=== PATIENT | male | born 1985 | race Asian ===

== ENCOUNTER 2017-07-25 10:31 | Emergency (ER) | payer OTHER ==
[2017-07-25 10:57] VITALS: BP 128/77; PULSE 75; TEMP 98.6; BMI 23.6
--- NOTE | 2017-07-25 11:40 | PDOC ---
History of Present Illness - General Chief Complaint: Pain Stated Complaint: RIGHT GROIN PAIN Time Seen by Provider: 07/25/17 11:35 - History of Present Illness Initial Comments: 07/25/17 11:35 Chief complaint: Right groin pain History of present illness: Patient has a right inguinal hernia, experiencing increased pain this morning. No injury, no lifting or straining. Review of systems: No nausea, vomiting, constipation, or lack of flatulence. No fever or chills. Remainder of systems reviewed and negative Past medical history: Told of a hernia in infancy. No treatment. Otherwise healthy, no active medical or surgical problems. 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 Occasional social alcohol, none recently Family history reviewed and noncontributory Physical exam: Alert and oriented well-developed well-nourished no acute distress cooperative Afebrile, vital signs normal Abdomen soft nontender without mass or organomegaly. Bowel sounds normal. Nondistended. Testes descended bilaterally, without mass or tenderness. No hernias were palpated in the inguinal area, but the right inguinal canal appeared to have a defect in the muscle wall approximately 1-2 cm. Impression: Possible right inguinal hernia, freely reducible, no signs of incarceration/strangulation. Plan: Patient was instructed regarding reducing the hernia if necessary. Also the signs of incarceration/strangulation. Fully ambulatory and in no significant pain or other distress upon discharge to follow-up with Dr. Pierce for further surgical evaluation. Past History - Past Medical History Allergies/Adverse Reactions: Allergies Allergy/AdvReac Type Severity Reaction Status Date / Time No Known Allergies Allergy Verified 07/25/17 10:39 Home Medications: Ambulatory Orders NK [No Known Home Medication] 07/25/17 COPD: No Other medical history: PT DENIES - Suicide/Smoking/Psychosocial Hx Smoking History: Never smoked Hx Alcohol Use: No Drug/Substance Use Hx: No Substance Use Type: None *Physical Exam - Vital Signs Last Vital Signs Temp Pulse Resp BP Pulse Ox 98.6 F 75 18 128/77 97 07/25/17 10:32 07/25/17 10:32 07/25/17 10:32 07/25/17 10:32 07/25/17 10:32 Medical Decision Making - Medical Decision Making 07/25/17 11:39 Dr. Pierce, surgery, consulted by phone. He will see patient in his office on Saturday. Patient was given the phone number and directions to the office on [facility]. *DC/Admit/Observation/Transfer Diagnosis at time of Disposition: Recurrent inguinal hernia of right side without obstruction or gangrene - Discharge Dispostion Disposition: HOME Condition at time of disposition: Stable Admit: No - Referrals Referrals: Andrea Pierce MD [Staff Physician] - - Patient Instructions Printed Discharge Instructions: DI for Groin Hernia - Post Discharge Activity
== END 2017-07-25 11:51 | disposition home or self-care (01) ==
LOC: FER 10:31
DX: K46.9 Unspecified abdominal hernia without obstruction or gangrene (principal)
CPT/HCPCS: 99281-25

== ENCOUNTER 2017-07-26 11:30 | Day surgery (SDC) | payer OTHER ==
[2017-07-25 15:16] VITALS: BMI 23.6
[~2017-07-26 11:30] MED LIST: BUPIVACAINE HCL/PF 0.5% (5MG/ML) 10 ML VIAL IJ ONE
--- NOTE | 2017-07-26 14:11 | HP ---
History & Physical Update - History History: No Change - Physical Physical: No Change - Assessment Assessment: No Change - Plan Plan: No Change
[2017-07-26] MEDS ORDERED: BUPIVACAINE HCL/PF 0.5% (5MG/ML) 10 ML VIAL IJ ONE (14:59)
--- NOTE | 2017-07-26 15:46 | OP ---
Operative Note - Note: Operative Date: 07/26/17 Pre-Operative Diagnosis: Right inguinal hernia Operation: RIH repair with mesh Findings: indirect inguinal hernia Implants: mesh plug and patch Post-Operative Diagnosis: Same as Pre-op Surgeon: Michael Olmedo [employer] Sk[employer] Based Pay Manager: Jaden Gutierrez Anesthesia: General Estimated Blood Loss (mls): 10 Operative Report Dictated: Yes
--- NOTE | 2017-07-26 15:48 | SURG ---
Surgery Director Perioperative Note Director Perioperative: Jaden Gutierrez PA-C Date of Service: 07/26/17 Diagnosis: Right inguinal hernia (indirect) Procedure: Right inguinal hernia repair with mesh I was present for the entirety of the operative procedure. For further detail, please refer to operative report. Visit type - Case Type Case Type: Scheduled Admission - New patient This patient is new to me today: Yes Date on this admission: 07/26/17
[2017-07-26] MEDS ORDERED: ONDANSETRON 4 MG/2 ML VIAL IVPUSH PRN (15:55)
[2017-07-26] MEDS ORDERED: oxyCODONE HCL 5 MG TABLET PO PRN (15:55)
[2017-07-26] MEDS ORDERED: LACTATED RINGERS SOLUTION 1,000 ML IV SCH (16:00)
[2017-07-26 18:30] VITALS: BP 137/78; PULSE 73
[2017-07-26 19:14] VITALS: TEMP 98.6
--- NOTE | 2017-07-28 10:41 | OP ---
DATE OF OPERATION: 07/27/2017 PROCEDURE PERFORMED: Right inguinal hernia repair with mesh. PREOPERATIVE DIAGNOSIS: Right inguinal hernia. POSTOPERATIVE DIAGNOSIS: Right inguinal hernia. SURGEON: Michael Olmedo M.D. GLASS POLISHER: TARYN Torrez ANESTHESIA: General by laryngeal mask airway. ESTIMATED BLOOD LOSS: About 10 mL. WOUND CLASS: Clean. ANTIBIOTICS: The patient received 2 g of Ancef prior to the start of the procedure. INDICATIONS: This is a 31-year-old male who presents with a few days' history of worsening inguinal pain associated with a bulge that was reducible. Due to the severe pain, the patient went to his PMD, and was subsequently referred for evaluation. On physical exam, the patient has a very tender but reducible inguinal bulge. So the patient was advised urgent inguinal hernia repair. Consent was obtained after discussion of the risks, benefits and alternatives to the procedure. DESCRIPTION OF PROCEDURE: The patient was brought to the operating room and placed in the supine position. General anesthesia by laryngeal mask airway was administered. The abdomen was prepped and draped in the usual sterile fashion. Using 0.5% Marcaine, local anesthesia was administered to the proposed incision site. A 5-cm skin crease incision over the inguinal canal was made using a scalpel blade number 10, with dissection carried down through the subcutaneous tissue. Further dissection using Bovie cautery was done until the external oblique aponeurosis was encountered. The external oblique aponeurosis was then opened with a scalpel blade number 15 and opened using Metzenbaum scissors proximally to just above the internal ring and distally opening the whole external ring. This exposed the spermatic cord, which was isolated bluntly and retracted with a Christiano drain. The cremasteric muscle was partially transected to expose the hernia sac. The hernia sac was then isolated from the rest of the spermatic cord structures using combined Bovie cautery and blunt dissection with a peanut dissector and gauze. The hernia sac was left intact and isolated towards the preperitoneal space. The sac was then pushed back into the preperitoneal space, followed by insertion of a small-sized mesh plug. The ilioinguinal nerve was visualized and isolated as well. The hernia patch was then deployed to reinforce the inguinal floor, with the spermatic cord exiting through its keyhole. After the deployment was done, the ilioinguinal nerve was placed properly on top of the mesh to avoid postoperative inguinodynia. The external oblique aponeurosis was apposed with continuous Vicryl 3-0 suture. The wound was then closed with interrupted Vicryl 3-0 suture for Jake fascia and dermis, and continuous Biosyn 4-0 suture for the subcuticular layer. The wound closure was reinforced with Steri-Strips, then covered with a sterile dressing. The patient was successfully extubated and transferred to the postanesthesia care unit in satisfactory condition. Keke [id number] MTDD
== END 2017-07-26 18:30 | disposition home or self-care (01) ==
LOC: JASU-SURG 11:30
PROVIDERS: ATTEND Surgery
PROC: 0YU50JZ Supplement Right Inguinal Region with Synthetic Substitute, Open Approach (ICD-10-PCS; principal; 2017-07-26 14:00)
DX: K40.90 Unilateral inguinal hernia, without obstruction or gangrene, not specified as recurrent (principal)
CPT/HCPCS: 94760